=== PATIENT | female | born 1955 | race Hispanic/Latino ===

== ENCOUNTER 2021-08-23 11:45 | Observation (INO) | payer MEDICARE ==
[2021-08-23 12:49] LABS: #Basophils 0.1 10x3/uL (0.0-0.2); #Eosinphils 0.1 10x3/uL (0.0-0.5); #Monocytes 1.1 10x3/uL (0.0-1.1); #Neutrophils 5.7 10x3/uL (1.5-8.4); %Basophils 0.6 % (0.0-2.0); %Eosinophils 1.4 % (0.0-6.0); %Lymphocytes 24.9 % (18.0-47.0); %Monocytes 11.5 % (0.0-10.0); Hemoglobin 13.8 g/dL (12.0-15.5); Mean Corpuscular HGB CONC 34.3 g/dL (32.0-36.0); Mean Corpuscular Hemoglobin 28.2 pg (27.0-33.0); Mean Corpuscular Volume 82.2 fl (81.6-98.3); Mean Platelet Volume 8.7 fl (7.4-10.4); Platelet Count 313 10x3/uL (150-450); RBC Distribution Width 13.5 % (11.5-14.5); Red Blood Cell (RBC) Count 4.89 10x6/uL (3.90-5.03); White Blood Cell (WBC) Count 9.3 10x3/uL (3.5-10.5)
[2021-08-23 13:07] LABS: ALT (SGPT) 63 U/L (8-55); AST (SGOT) 54 U/L (5-34); Albumin 4.3 g/dL (3.4-4.8); Alkaline Phosphatase 107 U/L (40-110); Anion Gap 19 mmol/L (10-20); BUN (Urea Nitrogen) 11 mg/dL (9.8-20.1); Bilirubin, Total 0.5 mg/dL (0.2-1.2); CK (CPK) 132 U/L (29-168); Calc. Creatinine Clearance 0 mL/min (70-130); Calcium 9.2 mg/dL (7.8-10.44); Carbon Dioxide 26 mmol/L (23-31); Chloride 92 mmol/L (98-107); Globulin 3.1 g/dL (2.4-3.5); Glucose 103 mg/dL (80-115); Lipase 60 U/L (8-78); Potassium 3.4 mmol/L (3.5-5.1); Protein, Total 7.4 g/dL (5.8-8.1); Sodium 134 mmol/L (136-145)
[2021-08-23] MEDS ORDERED: Aspirin Chewable 81 MG TAB ONE (13:14)
[2021-08-23 14:45] LABS: Bilirubin Neg (Negative); Blood, Urine Negative (Negative); Clarity Clear (Clear); Glucose, Urine (Dipstick) Normal (Negative); Ketone, Urine Negative (Negative); Leukocyte Negative (Negative); Nitrite Negative (Negative); Protein, Urine (Dipstick) Negative (Neg-Trace); Specific Gravity, Urine 1.015 (1.002-1.036); Urobilinogen Normal mg/dL (Less than 2)
[2021-08-23 19:00] VITALS: BMI 25.8
[2021-08-23] MEDS ORDERED: Acetaminophen 325 MG TAB PO PRN (19:33)
[2021-08-23] MEDS ORDERED: Ondansetron PF 4 MG/2 ML Vial IVP PRN (19:33)
[2021-08-23] MEDS ORDERED: Senokot S 8.6-50 MG TAB PO PRN (19:33)
[2021-08-23] MEDS ORDERED: Calcium Carbonate 500 MG ChewTAB PO PRN (19:33)
[2021-08-23] MEDS ORDERED: Sodium Chloride 0.9% 1,000 ML IV SCH (19:45)
[2021-08-23] MEDS ORDERED: Potassium Chloride 20 MEQ TAB PO SCH (20:00)
[2021-08-23] MEDS ORDERED: clonazePAM 0.5 MG TAB PO SCH (21:00)
[2021-08-23] MEDS ORDERED: Atorvastatin Calcium 40 MG TAB PO SCH (21:00)
[2021-08-23] MEDS ORDERED: Pregabalin 50 MG CAP PO SCH (21:00)
[2021-08-23] MEDS: Calcium Carbonate 600 MG + Vit D TAB PO SCH (21:28)
[2021-08-23] MEDS: Meclizine HCl 12.5 MG TAB PO SCH (21:29)
[2021-08-24 05:02] LABS: #Basophils 0.1 10x3/uL (0.0-0.2); #Eosinphils 0.2 10x3/uL (0.0-0.5); #Monocytes 0.9 10x3/uL (0.0-1.1); #Neutrophils 5.1 10x3/uL (1.5-8.4); %Basophils 0.7 % (0.0-2.0); %Eosinophils 2.2 % (0.0-6.0); %Lymphocytes 26.8 % (18.0-47.0); %Monocytes 10.6 % (0.0-10.0); %Neutrophils 58.9 % (40.0-75.0); Hemoglobin 13.1 g/dL (12.0-15.5); Mean Corpuscular Hemoglobin 27.8 pg (27.0-33.0); Mean Corpuscular Volume 81.7 fl (81.6-98.3); Mean Platelet Volume 8.9 fl (7.4-10.4); Platelet Count 297 10x3/uL (150-450); RBC Distribution Width 13.7 % (11.5-14.5); Red Blood Cell (RBC) Count 4.71 10x6/uL (3.90-5.03); White Blood Cell (WBC) Count 8.6 10x3/uL (3.5-10.5)
[2021-08-24 05:06] LABS: ALT (SGPT) 50 U/L (8-55); AST (SGOT) 38 U/L (5-34); Albumin 3.8 g/dL (3.4-4.8); Alkaline Phosphatase 89 U/L (40-110); Anion Gap 16 mmol/L (10-20); BUN (Urea Nitrogen) 10 mg/dL (9.8-20.1); Bilirubin, Total 0.3 mg/dL (0.2-1.2); Calc. Creatinine Clearance 82 mL/min (70-130); Calcium 8.9 mg/dL (7.8-10.44); Carbon Dioxide 24 mmol/L (23-31); Cardiac Risk 3.1 (Less than 4.5); Chloride 98 mmol/L (98-107); Cholesterol 102 mg/dl (< 200 Desired); Globulin 2.7 g/dL (2.4-3.5); Glucose 122 mg/dL (80-115); HDL Cholesterol 33 mg/dL (>60 Neg Risk); LDL Cholesterol, Calculated 51 mg/dL; Magnesium 1.8 mg/dL (1.6-2.6); Potassium 3.5 mmol/L (3.5-5.1); Protein, Total 6.5 g/dL (5.8-8.1); Sodium 134 mmol/L (136-145); Triglycerides 91 mg/dL (Less than 150)
[2021-08-24] MEDS: Meclizine HCl 12.5 MG TAB PO SCH (05:47)
[2021-08-24 08:27] VITALS: TEMP 97.8
[2021-08-24] MEDS ORDERED: Multivit, Therapeutic 1 TAB PO SCH (09:00)
[2021-08-24] MEDS ORDERED: CRANBERRY PO SCH (09:00)
[2021-08-24] MEDS ORDERED: Enoxaparin Sodium 40 MG/0.4 ML SYRINGE SC SCH (09:00)
[2021-08-24] MEDS ORDERED: [UNRECOGNIZED DRUG - OTHER] PO SCH (09:00)
[2021-08-24] MEDS ORDERED: Fish Oil 1,000 MG CAP PO SCH (09:00)
[2021-08-24] MEDS ORDERED: Atenolol 50 MG TAB PO SCH (09:00)
[2021-08-24] MEDS ORDERED: ASCORBIC ACID PO SCH (09:00)
[2021-08-24] MEDS ORDERED: OMEGA PO SCH (09:00)
[2021-08-24] MEDS ORDERED: FATTY ACIDS PO SCH (09:00)
[2021-08-24] MEDS ORDERED: Aspirin 81 mg Enteric Coated Tablet PO SCH (09:00)
[2021-08-24] MEDS: Calcium Carbonate 600 MG + Vit D TAB PO SCH (09:30)
[2021-08-24 09:32] VITALS: BP 132/66
[2021-08-24] MEDS ORDERED: Potassium Chloride 20 MEQ TAB PO SCH (11:45)
[2021-08-24] MEDS ORDERED: Magnesium Oxide 400 MG TAB PO SCH ×2 (12:00→21:00)
[2021-08-24 15:41] LABS: SARS-CoV-2 PCR by NAA Not Detected (NotDetected)
[2021-08-24] MEDS ORDERED: Pregabalin 75 MG CAP PO SCH (21:00)
== END 2021-08-24 13:11 | disposition home or self-care (01) ==
LOC: CSHERS 11:45 → CSHTELE 18:19
PROVIDERS: ADMIT Internal Medicine; ATTEND Internal Medicine
DX: R42 Dizziness and giddiness (principal); E86.0 Dehydration; E87.6 Hypokalemia; R26.9 Unspecified abnormalities of gait and mobility; I10 Essential (primary) hypertension; E78.5 Hyperlipidemia, unspecified; R73.03 Prediabetes; I65.21 Occlusion and stenosis of right carotid artery; G50.0 Trigeminal neuralgia; Z79.899 Other long term (current) drug therapy; Z79.82 Long term (current) use of aspirin; Z90.49 Acquired absence of other specified parts of digestive tract; Z20.822 Contact with and (suspected) exposure to COVID-19
CPT/HCPCS: 70450; 70551; 71045; 71275; 80053; 80061; 81003; 82550; 83690; 83735; 84484; 85025; 85379; 93005; 93880; 97139; 99285; G0378 ×3; U0003; U0005; 36415; 84443; J7050

== ENCOUNTER 2021-10-03 10:39 | Outpatient (CLI) | payer MEDICARE | END 2021-10-03 10:40 | disposition home or self-care (01) | LOC: CSHMAMMO 10:39 | PROVIDERS: ATTEND Family Medicine | DX: Z12.31 Encounter for screening mammogram for malignant neoplasm of breast (principal) | CPT/HCPCS: 77063; 77067 ==

== ENCOUNTER 2021-10-21 11:15 | Outpatient (CLI) | payer MEDICARE | END 2021-10-21 11:16 | disposition home or self-care (01) | LOC: CSHRAD 11:15 | PROVIDERS: ATTEND Family Medicine | DX: M25.531 Pain in right wrist (principal); M25.541 Pain in joints of right hand ==

== ENCOUNTER 2021-11-18 10:30 | Outpatient (CLI) | payer MEDICARE | END 2021-11-18 10:31 | disposition home or self-care (01) | LOC: CSHRAD 10:30 | PROVIDERS: ATTEND Family Medicine | DX: S62.101D Fracture of unspecified carpal bone, right wrist, subsequent encounter for fracture with routine healing (principal); S62.396D Other fracture of fifth metacarpal bone, right hand, subsequent encounter for fracture with routine healing ==

== ENCOUNTER 2021-12-16 11:26 | Outpatient (CLI) | payer MEDICARE | END 2021-12-16 11:27 | disposition home or self-care (01) | LOC: CSHRAD 11:26 | PROVIDERS: ATTEND Family Medicine | DX: S62.306A Unspecified fracture of fifth metacarpal bone, right hand, initial encounter for closed fracture (principal) ==

== ENCOUNTER 2022-04-30 13:33 | Outpatient (CLI) | payer MEDICARE | END 2022-04-30 13:34 | disposition home or self-care (01) | LOC: CSHRAD 13:33 | PROVIDERS: ATTEND Family Medicine | DX: M25.532 Pain in left wrist (principal); S52.602A Unspecified fracture of lower end of left ulna, initial encounter for closed fracture; W19.XXXA Unspecified fall, initial encounter ==

== ENCOUNTER 2024-05-16 10:45 | Outpatient (CLI) | payer MEDICARE | END 2024-05-16 10:46 | disposition home or self-care (01) | LOC: CSHMAMMO 10:45 | PROVIDERS: ATTEND Family Medicine | DX: M85.851 Other specified disorders of bone density and structure, right thigh (principal); M85.852 Other specified disorders of bone density and structure, left thigh | CPT/HCPCS: 77080 ==

== ENCOUNTER 2025-05-25 11:08 | Outpatient (CLI) | payer OTHER | END 2025-05-25 11:09 | disposition home or self-care (01) | LOC: CSHMAMMO 11:08 | PROVIDERS: ATTEND Obstetrics & Gynecology | DX: Z12.31 Encounter for screening mammogram for malignant neoplasm of breast (principal) | CPT/HCPCS: 77063; 77067 ==